=== PATIENT | male | born 1950 | race Caucasian/White ===

== ENCOUNTER → 2017-07-17 | Outpatient (REF) ==
[~2017-07-17] MED LIST: ADVAIR DISKUS1 DS1 IH; BIAXIN 500MG T500 MG PO; CETIRIZINE10 MG PO; LEVAQUIN 750MG750 MG PO; NO HOME MEDICATIONS; PREDNISONE20 MG PO; SINGULAIR10 MG PO; SPIRIVA HANDIH18 MCG IH; ZOVIRAX 200MG200 MG PO
== END ==
LOC: ZLAB.WCH 18:05
DX: Z01.89 Encounter for other specified special examinations (principal)
CPT/HCPCS: G0103

== ENCOUNTER → 2019-03-01 | Outpatient (REF) ==
[2019-03-01 17:03] LABS: THYROID STIMULATING HORMONE 0.907 uIU/mL (0.465-4.680)
[2019-03-01 17:20] LABS: PSA-TOTAL 0.7 ng/mL (0-4)
== END ==
LOC: ZLAB.WCH 15:57
PROVIDERS: Internal Medicine
DX: Z01.89 Encounter for other specified special examinations (principal)
CPT/HCPCS: G0103